=== PATIENT | male | born 1995 | race Two or more races ===

== ENCOUNTER 2024-07-10 15:30 | Outpatient (RCR) | payer MEDICAID, SELFPAY ==
--- NOTE | 2024-06-26 13:42 | PTNOTE_ITS ---
PT OP Initial Eval Patient Information Outpatient Physical Therapy Treatment Date: 06/26/24 Visit Reasons: BILATERAL KNEE PAIN Medical Diagnosis: M25.561 M25.562 Treatment Dx #1: B knee pain Start of Care: 06/26/24 Date of Onset: 1 yr ago Smoking Status Smoking Status: Never smoker Initial Assessment Subjective: Pt is 29 yr old bermudian speaking male who reports B knee pain and points to the front of B knees as site of pain. Increased pain with kneeling and he feels like they grind and pop when he squats or straightens the knees. 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 PMH: none reported Imaging: B knee Xray for leg length in EMR Pt goal: to get rid of the B knee pain Objective: B knee ArOM: Full and pain free into flexion and extension Strength: B quads: 4/5 without knee pain Patella PROM: crepitus Squat: positive patella crepitus Inés's: negative Varus/valgus stress: Assessment: Pt presents with good strength and full ROM of B knees but he has positive crepitus under the patellas consistent with OA. Pt won't likely benefit from skilled therapy and has poor rehab potential due to cartilagenous irritation of B knees. PT recommends further diagnostic imaging of B knees and orthopedic evaluation if ssx don't resolve. Short Term and [employer] Goals 1. Ind with HEP 2. Pt will squat x10 without pain 3. Pt will ascend/descend 1 flight of stairs without B knee pain Treatment Plan ?1. Manual therapy ? 2. Therex ? 3. Modalities as indicated, moist heat, ice, estim Frequency and Duration: 2x a week for 4 visits Certification Dates: 06/26/24 to 09/22/24 Procedure Charges OP PT Eval Mod Complex 30 minutes: Yes
--- NOTE | 2024-07-01 15:03 | PT.ODAYNRPT ---
PT Outpatient Daily Note OP Daily Note Outpatient Physical Therapy Treatment Date: 07/01/24 Visit Reasons: BILATERAL KNEE PAIN Subjective: No complaints. Objective: Please see flow sheet for ther ex list. Assessment: Pt completed interventions with fatigue but no pain to report. Plan: Continue with POC. Length of Time (minutes) of Treatment: 30 Minutes Procedure Charges Therapeutic Exercise 30 minutes: Yes
--- NOTE | 2024-07-03 15:05 | PT.ODAYNRPT ---
PT Outpatient Daily Note OP Daily Note Outpatient Physical Therapy Treatment Date: 07/03/24 Visit Reasons: BILATERAL KNEE PAIN Subjective: pt. reports lateral walks increased soreness from last therapy session Objective: see flowsheet for ther-ex Assessment: halted lateral walks to prevent pain Plan: continue PT per POC Length of Time (minutes) of Treatment: 30 Minutes Procedure Charges Therapeutic Exercise 30 minutes: Yes
--- NOTE | 2024-07-08 19:11 | PT.ODAYNRPT ---
PT Outpatient Daily Note OP Daily Note Outpatient Physical Therapy Treatment Date: 07/08/24 Visit Reasons: BILATERAL KNEE PAIN Subjective: pt. reports lateral walks increased soreness from last therapy session Objective: see flowsheet for ther-ex Assessment: halted lateral walks to prevent pain Plan: continue PT per POC Length of Time (minutes) of Treatment: 30 Minutes Procedure Charges Therapeutic Exercise 30 minutes: Yes
--- NOTE | 2024-07-10 16:45 | PT.ODS1RPT ---
PT OP Progress/Discharge Note Date of Service: 07/10/24 Progress Note/DC Note Progress Note/Discharge Note: DC Note Patient Information Visit Reasons: BILATERAL KNEE PAIN Service Continue Service or Discharge: Discharge Discharge Date: 07/10/24 Status Subjective: Continued B knee pain with squatting and stairs with grinding Objective: B knee AROM Full and pain free Strength: B quads: 4/5 Crepitus:positive under patellas Assessment: Pt attended the eval and / authorized visits with limited progress with therapy goals due to continued B knee pain and crepitus. Pt not likely going to meet goals due to this which doesn't resolve with therapy. PT recommends further diagnostic imaging of B knees and orthopedic evaluation. Plan: D/C Procedure Charges Therapeutic Exercise 30 minutes: Yes
== END 2024-07-22 23:59 | disposition home or self-care (01) ==
LOC: CPTX 15:30
PROVIDERS: PCP Family Medicine; Referring Provider Family Medicine; Visit Provider Family Medicine
DX: M25.562 Pain in left knee (principal); M25.561 Pain in right knee
CPT/HCPCS: 97110; 97162